=== PATIENT | female | born 1970 | race Asian ===

== ENCOUNTER 2023-03-01 07:25 | Outpatient (CLI) | payer OTHER ==
--- NOTE | 2023-03-03 16:51 | MRI Report ---
PROCEDURE: THORACIC SPINE WO INDICATIONS: COLLAPSED VERTEBRA TECHNIQUE: Noncontrast sagittal T1 spine echo and T2 fast spin echo, sagittal STIR, axial T1 and T2 fast spin ec ho through the thoracic spine. COMPARISON: None. FINDINGS: Image quality: Excellent. Alignment and Curvature: There is normal bony alignment. Bone Marrow: Marrow is of normal overall signal. Endplate deformity of 22% at T7 is present without visualized increased signal. Superior endplate deformity is noted at T6 there is very minimal appeara nce of signal. Spinal Cord: Visualized spinal cord is normal in size and signal. Paraspinous Soft Tissues: No paravertebral masses. Miscellaneous: On axial images, central canal and foramina appear widely patent at all scanned level s. IMPRESSION: Subacute superior endplate at T6. Reviewed by: Meliza Gore MD on 03/03/2023 4:50 PM PST Approved by: Meliza Gore MD on 03/03/2023 4:50 PM PST Station ID: [id number]
== END 2023-03-01 07:26 | disposition home or self-care (01) ==
LOC: DI 07:25
PROVIDERS: ATTEND Student in an Organized Health Care Education/Training Program
DX: M43.8X4 Other specified deforming dorsopathies, thoracic region (principal)

== ENCOUNTER 2023-11-19 14:31 | Outpatient (CLI) | payer OTHER ==
--- NOTE | 2023-11-19 21:06 | DEXA Report ---
PROCEDURE: Dexa Spine and/or Hip INDICATIONS: THORACIC SPINE FX TECHNIQUE: Dual energy x-ray absorptiometry (DXA) was performed on a [employer] System. Regions measur ed are the AP Spine, femoral neck, and if needed forearm. COMPARISON: None. FINDINGS: Lumbar Spine: Bone Mineral Density: 1.051 g/cm/cm,T score: -1.1. Left Femoral Neck: Bone Mineral Density: 0.763 g/cm/cm, T score: -2.0. Left Hip: Bone Mineral Density: 0.807 g/cm/cm,T score: -1.6. FRAX risk factors: Rheumatoid arthritis 10 year risk of major osteoporotic fracture: 4.1% major osteoporotic fracture = hip, clinical vertebral, proximal humerus, distal forearm 10 year risk of hip fracture: 0.6% (T score greater or equal to -1.0: NORMAL) (T score from -1.1 to -2.4: OSTEOPENIA) (T score less than or equal to -2.5 to: OSTEOPOROSIS) Impression: By WHO criteria, this patient has low bone density (osteopenia). Patients with diagnosis of osteoporosis or osteopenia should have regular bone mineral density assess ment. For those eligible for Medicare, routine testing is allowed once every 2 years. Testing frequ ency can be increased for patients who have rapidly progressing disease or for those who are receivin g medical therapy to restore bone mass. Reviewed by: Bridger Diamond MD on 11/19/2023 9:05 PM PDT Approved by: Bridger Diamond MD on 11/19/2023 9:05 PM PDT Station ID: [id number]
== END 2023-11-19 14:32 | disposition home or self-care (01) ==
LOC: DI 14:31
DX: S22.009A Unspecified fracture of unspecified thoracic vertebra, initial encounter for closed fracture (principal); M85.80 Other specified disorders of bone density and structure, unspecified site